=== PATIENT | male | born 1975 | race Caucasian/White ===

== ENCOUNTER 2017-09-16 10:54 | Inpatient (IN) | payer OTHER ==
[~2017-09-16] VITALS: Ht 167.6 cm; Wt 56.0 kg
[~2017-09-16 10:54] MED LIST: METF500T PO
[2017-09-16] MEDS ORDERED: normal saline 1000ML IV soln IV ONE (11:20)
[2017-09-16] MEDS ORDERED: metoclopramide 5 mg/ml inj IV ONE (11:40)
[2017-09-16 11:45] LABS: BASOPHILS # (AUTO) 0.1 X10'3 (0-0.2); BASOPHILS % (AUTO) 0.9 % (0-1); EOSINOPHILS # (AUTO) 0.1 X10'3 (0-0.9); EOSINOPHILS % (AUTO) 0.8 % (0-6); LYMPHOCYTES # (AUTO) 1.6 X10'3 (1.1-4.8); MEAN CORPUSCULAR HEMOGLOBIN 29.9 PG (27.0-31.0); MEAN CORPUSCULAR HGB CONC 34.7 % (33.0-36.5); MEAN CORPUSCULAR VOLUME 86.1 FL (78-98); MEAN PLATELET VOLUME 8.6 FL (7.4-10.4); MONOCYTES # (AUTO) 0.3 X10'3 (0-0.9); MONOCYTES % (AUTO) 3.3 % (2-12); NEUTROPHILS # (AUTO) 8.2 X10'3 (1.8-7.7); PLATELET COUNT 371 X10'3 (140-440); RED BLOOD COUNT 5.69 X10'6 (4.70-6.10); RED CELL DISTRIBUTION WIDTH 12.4 % (11.5-14.5); WHITE BLOOD COUNT 10.3 X10'3 (4.5-11.0)
[2017-09-16] MEDS ORDERED: LORazepam 2 mg/ml vial IV ONE (11:50)
[2017-09-16] MEDS ORDERED: pantoprazole 40 MG vial IV ONE (11:50)
[2017-09-16 11:56] LABS: ABG BASE EXCESS -3.5 mmol/L (-2.0-3.0); ABG HCO3 15.3 mmol/L (22.0-26.0); ABG OXYGEN SATURATION 98.5 % (95-98); ABG PCO2 (T) 17.6 mmHg (35.0-48.0); ABG PH (T) 7.554 (7.350-7.450); FCOHb 0.9 % (0.5-1.5); FMetHb 0.2 % (0.3-1.12); FO2Hb 97.4 % (94-100); PATIENT TEMPERATURE 36.8; TOTAL HEMOGLOBIN 17.5 G/dl (14.0-18.0)
[2017-09-16 12:00] LABS: ALANINE AMINOTRANSFERASE 29 U/L (12-78); ALBUMIN 3.8 G/DL (3.4-5.0); ALKALINE PHOSPHATASE 105 IU/L (46-116); ANION GAP 18 (8-16); ASPARTATE AMINO TRANSFERASE 10 U/L (10-37); BLOOD UREA NITROGEN 21 MG/DL (7-18); BUN/CREATININE RATIO 20.8 (5.4-32.0); CALCIUM 9.3 MG/DL (8.5-10.1); CHLORIDE 92 MMOL/L (99-107); CREATININE 1.01 MG/DL (0.60-1.10); GLUCOSE 319 MG/DL (70-104); PHOSPHORUS 4.3 MG/DL (2.3-4.5); POTASSIUM 4.2 MMOL/L (3.5-5.1); SODIUM 131 MMOL/L (135-145); TOTAL CARBON DIOXIDE 20.9 MMOL/L (24-32); TOTAL PROTEIN 7.8 G/DL (6.4-8.2); eGFR 81 ML/MIN
[2017-09-16] MEDS ORDERED: insulin regular, DKA only 100 UNIT in normal saline 100ml IV soln 99 ML IV SCH ×4 (12:11→13:39)
[2017-09-16 13:21] LABS: GASTRIC OCCULT BLOOD POSITIVE (Neg)
[2017-09-16] MEDS ORDERED: hydrALAZINE 20mg/ml inj. IV ONE (13:30)
[2017-09-16] MEDS: normal saline 1000ml 1,000 ML IV SCH ×4 (13:39→21:39)
[2017-09-16] MEDS ORDERED: magnesium hydroxide 30ml (MOM) UD suspension PO PRN (13:40)
[2017-09-16] MEDS ORDERED: potassium Cl 20 mEq SR tablet PO PRN (13:40)
[2017-09-16] MEDS ORDERED: sodium phosphate inj. 15 MMOL in dextrose 5%-water 150 ML IV PRN (13:40)
[2017-09-16] MEDS ORDERED: Neutra Phos packet PO PRN (13:40)
[2017-09-16] MEDS ORDERED: insulin regular, human 10 units/0.1 ml syringe SQ PRN (13:40)
[2017-09-16] MEDS ORDERED: potassium Cl 40MEQ/NS 500ml 500 ML IV PRN ×2 (13:40)
[2017-09-16] MEDS ORDERED: sodium phosphate inj. 30 MMOL in dextrose 5%-water 250 ML IV PRN (13:40)
[2017-09-16] MEDS ORDERED: acetaminophen 325mg tablet PO PRN (13:40)
[2017-09-16 14:19] LABS: ALBUMIN 3.3 G/DL (3.4-5.0); ANION GAP 15 (8-16); BLOOD UREA NITROGEN 19 MG/DL (7-18); BUN/CREATININE RATIO 17.6 (5.4-32.0); CALCIUM 8.2 MG/DL (8.5-10.1); CHLORIDE 100 MMOL/L (99-107); CREATININE 1.08 MG/DL (0.60-1.10); GLUCOSE 238 MG/DL (70-104); POTASSIUM 4.4 MMOL/L (3.5-5.1); SODIUM 137 MMOL/L (135-145); TOTAL CARBON DIOXIDE 22.5 MMOL/L (24-32); eGFR 75 ML/MIN
[2017-09-16] MEDS: potassium CL 20mEq in D5-1/2NS 1,000 ML IV PRN ×4 (15:01→21:14)
[2017-09-16 15:08] LABS: CLARITY,URINE CLEAR (Clear); COLOR,URINE YELLOW (Yellow); GLUCOSE, URINE >=1000 mg/dl (Neg); KETONES,URINE >=80 mg/dl (Neg); LEUKOCYTE ESTERASE ,URINE NEGATIVE (Neg); NITRITES, URINE NEGATIVE (Neg); OCCULT BLOOD,URINE NEGATIVE (Neg); PH,URINE 5.5 (4.8-8.0); PROTEIN,URINE NEGATIVE (Neg); UROBILINOGEN,URINE 0.2 E.U/dL (0.2-1.0)
[2017-09-16 15:16] LABS: RBC,URINE 0-2 /HPF (0-2); UA COLLECTION TYPE CLN CATCH MIDSTREAM
[2017-09-16 15:17] LABS: BACTERIA,URINE NONE SEEN /HPF (Neg); MUCUS STRANDS FEW /LPF (Neg); SQUAMOUS EPITHELIAL CELL,UR NONE SEEN /LPF (FEW); WBC,URINE 0-4 /HPF (0-4)
[2017-09-16 18:15] LABS: ALBUMIN 3.2 G/DL (3.4-5.0); ANION GAP 10 (8-16); BLOOD UREA NITROGEN 16 MG/DL (7-18); CALCIUM 8.1 MG/DL (8.5-10.1); CHLORIDE 101 MMOL/L (99-107); GLUCOSE 182 MG/DL (70-104); PHOSPHORUS 3.8 MG/DL (2.3-4.5); POTASSIUM 3.8 MMOL/L (3.5-5.1); SODIUM 138 MMOL/L (135-145); TOTAL CARBON DIOXIDE 27.3 MMOL/L (24-32); eGFR 82 ML/MIN
[2017-09-16 19:00] VITALS: BP 139/78
[2017-09-16] MEDS: metoclopramide 5 mg/ml inj IV PRN (19:18)
[2017-09-16 22:59] VITALS: BP 156/100
[2017-09-16] MEDS: ondansetron/PF 4mg/2ml inj IV PRN (23:36)
[2017-09-17] MEDS: metoclopramide 5 mg/ml inj IV PRN ×3 (01:18→20:31)
[2017-09-17] MEDS: potassium CL 20mEq in D5-1/2NS 1,000 ML IV PRN ×3 (01:30→04:39)
[2017-09-17] MEDS: normal saline 1000ml 1,000 ML IV SCH ×8 (01:39→18:25)
[2017-09-17 03:00] VITALS: BP 152/104
[2017-09-17] MEDS: mag hydrox/Alum hydrox/simeth 30ml oral suspension PO PRN ×2 (04:59→20:28)
[2017-09-17] MEDS: ondansetron/PF 4mg/2ml inj IV PRN ×2 (05:39→19:43)
[2017-09-17 05:49] LABS: ANION GAP 8 (8-16); BLOOD UREA NITROGEN 10 MG/DL (7-18); BUN/CREATININE RATIO 14.3 (5.4-32.0); CALCIUM 8.2 MG/DL (8.5-10.1); CHLORIDE 100 MMOL/L (99-107); GLUCOSE 209 MG/DL (70-104); PHOSPHORUS 2.8 MG/DL (2.3-4.5); POTASSIUM 3.4 MMOL/L (3.5-5.1); SODIUM 134 MMOL/L (135-145); TOTAL CARBON DIOXIDE 25.9 MMOL/L (24-32); eGFR > 90 ML/MIN
[2017-09-17] MEDS ORDERED: pneumococcal 23-VAL P-sac vacc 25 mcg/0.5ml vial IMVAC ONE (06:05)
[2017-09-17 06:26] LABS: LIPASE 123 U/L (73-393)
[2017-09-17 07:17] LABS: BASOPHILS % (AUTO) 0.3 % (0-1); EOSINOPHILS % (AUTO) 0 % (0-6); HEMATOCRIT 45.2 % (42.0-52.0); HEMOGLOBIN 15.6 g/dl (14.0-17.9); LYMPHOCYTES # (AUTO) 1.7 X10'3 (1.1-4.8); LYMPHOCYTES % (AUTO) 14.6 % (21-51); MEAN CORPUSCULAR HEMOGLOBIN 30.2 PG (27.0-31.0); MEAN CORPUSCULAR HGB CONC 34.6 % (33.0-36.5); MEAN CORPUSCULAR VOLUME 87.2 FL (78-98); MEAN PLATELET VOLUME 8.4 FL (7.4-10.4); MONOCYTES # (AUTO) 0.7 X10'3 (0-0.9); MONOCYTES % (AUTO) 5.9 % (2-12); NEUTROPHILS # (AUTO) 9.2 X10'3 (1.8-7.7); NEUTROPHILS % (AUTO) 79.2 % (42-75); PLATELET COUNT 291 X10'3 (140-440); RED BLOOD COUNT 5.18 X10'6 (4.70-6.10); RED CELL DISTRIBUTION WIDTH 12.6 % (11.5-14.5); WHITE BLOOD COUNT 11.6 X10'3 (4.5-11.0)
[2017-09-17] MEDS: K and/or MAG REPLACEMENT MC SCH (08:00)
[2017-09-17] MEDS: morphine 4 MG/ML inj SYRINge IV PRN ×3 (08:37→20:58)
[2017-09-17 10:07] LABS: ALBUMIN 3.4 G/DL (3.4-5.0); ANION GAP 10 (8-16); BLOOD UREA NITROGEN 9 MG/DL (7-18); BUN/CREATININE RATIO 13.2 (5.4-32.0); CALCIUM 8.3 MG/DL (8.5-10.1); CHLORIDE 99 MMOL/L (99-107); CREATININE 0.68 MG/DL (0.60-1.10); GLUCOSE 148 MG/DL (70-104); POTASSIUM 3.2 MMOL/L (3.5-5.1); SODIUM 135 MMOL/L (135-145); TOTAL CARBON DIOXIDE 26.5 MMOL/L (24-32); eGFR > 90 ML/MIN
[2017-09-17] MEDS ORDERED: MESSAGE TO PHARMACY PO ONE (10:10)
[2017-09-17] MEDS ORDERED: dextrose 50%-water 50ml dispensing syringe IV PRN ×2 (10:10)
[2017-09-17] MEDS ORDERED: dextrose ORAL solution 15 GM/59 ML bottle PO PRN ×2 (10:10)
[2017-09-17] MEDS ORDERED: glucagon, human recombinant 1mg kit SUBCUT PRN (10:10)
[2017-09-17] MEDS: potassium Cl 20 mEq SR tablet PO PRN ×3 (10:28→19:43)
[2017-09-17] MEDS ORDERED: insulin glargine (Lantus) pen - multi-dose SQ ONE ×2 (10:35→21:00)
[2017-09-17] MEDS: insulin Lispro (HumaLOG) vial - multi-dose SQ SCH ×5 (10:37→18:43)
[2017-09-17 11:00] VITALS: BP 139/90
[2017-09-17] MEDS ORDERED: insulin regular, DKA only 100 UNIT in normal saline 100ml IV soln 99 ML IV SCH ×6 (13:39)
[2017-09-17 15:00] VITALS: BP 145/100
[2017-09-17 19:00] VITALS: BP 147/101
[2017-09-17] MEDS ORDERED: insulin glargine (Lantus) pen - multi-dose SQ SCH (21:00)
[2017-09-17 23:00] VITALS: BP 128/77
[2017-09-18] MEDS: ondansetron/PF 4mg/2ml inj IV PRN ×2 (02:27→08:34)
[2017-09-18] MEDS: morphine 4 MG/ML inj SYRINge IV PRN (02:27)
[2017-09-18] MEDS: mag hydrox/Alum hydrox/simeth 30ml oral suspension PO PRN ×2 (02:35→07:34)
[2017-09-18 03:00] VITALS: BP 156/110
[2017-09-18 03:10] VITALS: BP 173/106
[2017-09-18] MEDS: normal saline 1000ml 1,000 ML IV SCH (04:25)
[2017-09-18] MEDS: metoclopramide 5 mg/ml inj IV PRN (04:53)
[2017-09-18 06:30] VITALS: BP 133/77
[2017-09-18 06:35] LABS: ALBUMIN 3.2 G/DL (3.4-5.0); ANION GAP 11 (8-16); BLOOD UREA NITROGEN 12 MG/DL (7-18); BUN/CREATININE RATIO 20.3 (5.4-32.0); CALCIUM 8.5 MG/DL (8.5-10.1); CHLORIDE 99 MMOL/L (99-107); CREATININE 0.59 MG/DL (0.60-1.10); GLUCOSE 209 MG/DL (70-104); POTASSIUM 3.6 MMOL/L (3.5-5.1); SODIUM 134 MMOL/L (135-145); TOTAL CARBON DIOXIDE 23.9 MMOL/L (24-32); eGFR > 90 ML/MIN
[2017-09-18] MEDS: K and/or MAG REPLACEMENT MC SCH (08:00)
[2017-09-18] MEDS ORDERED: LANTUS SQ (08:50)
[2017-09-18] MEDS ORDERED: METO-292 PO (08:50)
[2017-09-18] MEDS: insulin Lispro (HumaLOG) vial - multi-dose SQ SCH (09:16)
[2017-09-18] MEDS ORDERED: pneumococcal 23-VAL P-sac vacc 25 mcg/0.5ml vial IMVAC ONE (11:00)
== END 2017-09-18 11:31 | disposition home or self-care (01) | DRG 73 ==
LOC: ER 10:54 → ED HOLD 13:39 → PCU 3S 18:05
PROVIDERS: ADMIT Internal Medicine; ATTEND Internal Medicine
DX: E10.43 Type 1 diabetes mellitus with diabetic autonomic (poly)neuropathy (principal); K29.01 Acute gastritis with bleeding; N17.9 Acute kidney failure, unspecified; E87.3 Alkalosis; E87.4 Mixed disorder of acid-base balance; E87.1 Hypo-osmolality and hyponatremia; E10.10 Type 1 diabetes mellitus with ketoacidosis without coma; K31.84 Gastroparesis; E86.0 Dehydration; D64.9 Anemia, unspecified; F17.210 Nicotine dependence, cigarettes, uncomplicated; I10 Essential (primary) hypertension; Z79.4 Long term (current) use of insulin; Z83.3 Family history of diabetes mellitus; Z91.19 Patient's noncompliance with other medical treatment and regimen; Z23 Encounter for immunization
CPT/HCPCS: 36415; 36600; 71045; 80048; 80053; 81001; 82271; 82803; 82948; 83036; 83605; 83690; 83735; 84100; 84145; 85018; 85025; 87040; 87070; 93005; 96361; 96374; 96375; 99285; C9113; J0360; J1815; J2060; J2270; J2405; J2765; J7030

== ENCOUNTER 2017-09-22 16:34 | Emergency (ER) | payer OTHER ==
[~2017-09-22] VITALS: Ht 162.6 cm; Wt 60.0 kg
[~2017-09-22 16:34] MED LIST changes: +LANTUS SQ; -METF500T PO; +METO-292 PO
[2017-09-22] MEDS ORDERED: morphine 4 MG/ML inj SYRINge IV ONE (16:50)
[2017-09-22] MEDS ORDERED: ondansetron/PF 4mg/2ml inj IV ONE (16:50)
[2017-09-22] MEDS ORDERED: normal saline 1000ML IV soln IVB ONE (16:50)
[2017-09-22 17:09] LABS: BASOPHILS # (AUTO) 0.1 X10'3 (0-0.2); BASOPHILS % (AUTO) 0.6 % (0-1); EOSINOPHILS # (AUTO) 0.1 X10'3 (0-0.9); EOSINOPHILS % (AUTO) 1.2 % (0-6); HEMATOCRIT 43.7 % (42.0-52.0); HEMOGLOBIN 15.1 g/dl (14.0-17.9); LYMPHOCYTES % (AUTO) 8.3 % (21-51); MEAN CORPUSCULAR HEMOGLOBIN 30.3 PG (27.0-31.0); MEAN CORPUSCULAR HGB CONC 34.6 % (33.0-36.5); MEAN CORPUSCULAR VOLUME 87.6 FL (78-98); MEAN PLATELET VOLUME 8.1 FL (7.4-10.4); MONOCYTES # (AUTO) 0.4 X10'3 (0-0.9); MONOCYTES % (AUTO) 3.3 % (2-12); NEUTROPHILS # (AUTO) 10.7 X10'3 (1.8-7.7); NEUTROPHILS % (AUTO) 86.6 % (42-75); PLATELET COUNT 352 X10'3 (140-440); RED BLOOD COUNT 4.99 X10'6 (4.70-6.10); RED CELL DISTRIBUTION WIDTH 12.6 % (11.5-14.5); WHITE BLOOD COUNT 12.3 X10'3 (4.5-11.0)
[2017-09-22 17:18] LABS: PROTHROMBIN TIME 10.2 SECONDS (9.0-12.0)
[2017-09-22 17:25] LABS: ALANINE AMINOTRANSFERASE 30 U/L (12-78); ALBUMIN 3.8 G/DL (3.4-5.0); ALBUMIN/GLOBULIN RATIO 1.1 (1.1-1.5); ALKALINE PHOSPHATASE 81 IU/L (46-116); ANION GAP 16 (8-16); ASPARTATE AMINO TRANSFERASE 21 U/L (10-37); BILIRUBIN,TOTAL 1.6 MG/DL (0.1-1.0); BLOOD UREA NITROGEN 21 MG/DL (7-18); BUN/CREATININE RATIO 26.9 (5.4-32.0); CALCIUM 8.9 MG/DL (8.5-10.1); CHLORIDE 98 MMOL/L (99-107); CREATININE 0.78 MG/DL (0.60-1.10); GLUCOSE 233 MG/DL (70-104); POTASSIUM 3.1 MMOL/L (3.5-5.1); SODIUM 138 MMOL/L (135-145); TOTAL CELLS COUNTED 100; TOTAL PROTEIN 7.4 G/DL (6.4-8.2); eGFR > 90 ML/MIN
[2017-09-22 17:26] LABS: PLATELET ESTIMATE NORMAL
[2017-09-22 17:33] VITALS: BP 132/88
== END 2017-09-22 18:44 | disposition home or self-care (01) ==
LOC: ER 16:35
DX: R10.84 Generalized abdominal pain (principal); R10.12 Left upper quadrant pain; R11.10 Vomiting, unspecified; R06.02 Shortness of breath; E11.9 Type 2 diabetes mellitus without complications; Z79.4 Long term (current) use of insulin; Z79.84 Long term (current) use of oral hypoglycemic drugs; Z79.899 Other long term (current) drug therapy
CPT/HCPCS: 36415; 80053; 82948; 85025; 85610; 96361; 96374; 96375; 99284; J2270; J2405; J7030

== ENCOUNTER 2017-10-14 00:45 | Emergency (ER) | payer MEDICAID, OTHER ==
[~2017-10-14] VITALS: Ht 162.6 cm; Wt 59.1 kg
[~2017-10-14 00:45] MED LIST changes: +METF500T PO
[2017-10-14] MEDS ORDERED: ondansetron/PF 4mg/2ml inj IV ONE (01:15)
[2017-10-14] MEDS ORDERED: normal saline 1000ML IV soln IVB ONE (01:15)
[2017-10-14 01:20] LABS: EOSINOPHILS % (AUTO) 0.4 % (0-6); RED CELL DISTRIBUTION WIDTH 12.1 % (11.5-14.5); WHITE BLOOD COUNT 7.9 X10'3 (4.5-11.0)
[2017-10-14] MEDS ORDERED: pantoprazole 40 MG vial IV ONE (01:20)
[2017-10-14 01:29] LABS: BASOPHILS % (AUTO) 0.6 % (0-1); HEMATOCRIT 52.2 % (42.0-52.0); HEMOGLOBIN 17.9 g/dl (14.0-17.9); LYMPHOCYTES % (AUTO) 24.9 % (21-51); MEAN CORPUSCULAR HEMOGLOBIN 29.9 PG (27.0-31.0); MEAN CORPUSCULAR HGB CONC 34.3 % (33.0-36.5); MEAN CORPUSCULAR VOLUME 87.2 FL (78-98); MEAN PLATELET VOLUME 7.9 FL (7.4-10.4); MONOCYTES # (AUTO) 0.7 X10'3 (0-0.9); MONOCYTES % (AUTO) 8.3 % (2-12); NEUTROPHILS # (AUTO) 5.2 X10'3 (1.8-7.7); NEUTROPHILS % (AUTO) 65.8 % (42-75); PLATELET COUNT 389 X10'3 (140-440); PROTHROMBIN TIME 9.9 SECONDS (9.0-12.0); RED BLOOD COUNT 5.99 X10'6 (4.70-6.10)
[2017-10-14 01:30] LABS: CLARITY,URINE SLIGHTLY CLOUDY (Clear); COLOR,URINE YELLOW (Yellow); GLUCOSE, URINE >=1000 mg/dl (Neg); KETONES,URINE 40 mg/dl (Neg); LEUKOCYTE ESTERASE ,URINE NEGATIVE (Neg); NITRITES, URINE NEGATIVE (Neg); OCCULT BLOOD,URINE NEGATIVE (Neg); PROTEIN,URINE TRACE mg/dl (Neg); UROBILINOGEN,URINE 0.2 E.U/dL (0.2-1.0)
[2017-10-14 01:33] LABS: ALANINE AMINOTRANSFERASE 29 U/L (12-78); ALKALINE PHOSPHATASE 96 IU/L (46-116); ANION GAP 11 (8-16); ASPARTATE AMINO TRANSFERASE 14 U/L (10-37); BILIRUBIN,TOTAL 0.9 MG/DL (0.1-1.0); BLOOD UREA NITROGEN 20 MG/DL (7-18); BUN/CREATININE RATIO 23.5 (5.4-32.0); CALCIUM 9.6 MG/DL (8.5-10.1); CHLORIDE 97 MMOL/L (99-107); CREATININE 0.85 MG/DL (0.60-1.10); ETHANOL < 0.010 GM/DL (0.0-0.010); GLUCOSE 315 MG/DL (70-104); LIPASE 107 U/L (73-393); POTASSIUM 3.6 MMOL/L (3.5-5.1); SODIUM 137 MMOL/L (135-145); TOTAL CARBON DIOXIDE 29.2 MMOL/L (24-32); TOTAL PROTEIN 8.1 G/DL (6.4-8.2); eGFR > 90 ML/MIN
[2017-10-14 01:38] LABS: AMORPHOUS PHOSPHATES 4+; BACTERIA,URINE FEW /HPF (Neg); RBC,URINE NONE SEEN /HPF (0-2); SQUAMOUS EPITHELIAL CELL,UR FEW /LPF (FEW); UA COLLECTION TYPE CLN CATCH MIDSTREAM; WBC,URINE NONE SEEN /HPF (0-4)
[2017-10-14 01:41] LABS: URINE AMPHETAMINE SCREEN POSITIVE (Neg); URINE BARBITUATE SCREEN NEGATIVE (Neg); URINE BENZODIAZEPINES SCREEN NEGATIVE (Neg); URINE CANNABINOID SCREEN NEGATIVE (Neg); URINE COCAINE SCREEN NEGATIVE (Neg); URINE METHADONE SCREEN NEGATIVE (Neg); URINE OPIATE SCREEN NEGATIVE (Neg); URINE PHENCYCLIDINE SCREEN NEGATIVE (Neg)
[2017-10-14] MEDS ORDERED: insulin regular, human 10 units/0.1 ml syringe IV ONE ×3 (01:50→03:30)
[2017-10-14] MEDS ORDERED: BLOO1EAC70 MC (02:20)
[2017-10-14] MEDS ORDERED: METO-292 PO (02:23)
[2017-10-14 02:43] VITALS: BP 136/86
[2017-10-14] MEDS ORDERED: normal saline 1000ml 1,000 ML IV ONE (02:50)
[2017-10-14] MEDS ORDERED: metoclopramide 5 mg/ml inj IV ONE (02:50)
== END 2017-10-14 03:43 | disposition home or self-care (01) ==
LOC: ER 00:45
DX: E10.43 Type 1 diabetes mellitus with diabetic autonomic (poly)neuropathy (principal); K31.84 Gastroparesis; Z79.4 Long term (current) use of insulin
CPT/HCPCS: 36415; 80053; 80305; 80320; 81001; 82948; 83690; 85025; 85610; 96361; 96374; 96375; 96376; 99284; C9113; J1815; J2405; J2765; J7030